=== PATIENT | female | born 1955 | race Caucasian/White ===

== ENCOUNTER → 2024-05-03 | Outpatient (CLI) | payer MEDICARE | LOC: M RAD 11:55 | PROVIDERS: ATTEND Nurse Practitioner Family | DX: S90.02XA Contusion of left ankle, initial encounter (principal); M79.662 Pain in left lower leg; S80.12XD Contusion of left lower leg, subsequent encounter; X58.XXXD Exposure to other specified factors, subsequent encounter; Y92.9 Unspecified place or not applicable ==

== ENCOUNTER 2024-05-05 10:25 | Emergency (ER) | payer MEDICARE ==
[~2024-05-05] VITALS: Ht 160 cm; Wt 82.0 kg
[2024-05-05] MEDS: ACETAMINOPHEN 500 MG TAB PO ONE (11:24)
[2024-05-05 12:51] VITALS: BP 134/63; TEMP 98.2; O2SAT 95
== END 2024-05-05 13:00 | disposition home or self-care (01) ==
LOC: M ED 10:25
DX: S93.402A Sprain of unspecified ligament of left ankle, initial encounter (principal); W22.8XXA Striking against or struck by other objects, initial encounter; Y92.009 Unspecified place in unspecified non-institutional (private) residence as the place of occurrence of the external cause; Y93.H2 Activity, gardening and landscaping; Y99.9 Unspecified external cause status; Z95.5 Presence of coronary angioplasty implant and graft; Z86.718 Personal history of other venous thrombosis and embolism; Z96.659 Presence of unspecified artificial knee joint; Z88.5 Allergy status to narcotic agent; Z91.89 Other specified personal risk factors, not elsewhere classified